=== PATIENT | female | born 1955 | race Two or more races ===

== ENCOUNTER 2024-09-03 16:15 | Emergency (ER) | payer OTHER ==
[~2024-09-03] VITALS: Ht 160 cm; Wt 64.4 kg
[2024-09-03] MEDS ORDERED: ACETAMINOPHEN500 M1 PO (20:29)
[2024-09-03] MEDS ORDERED: IBU800 MG PO (20:29)
== END 2024-09-03 21:23 | disposition home or self-care (01) ==
LOC: ER 16:16
DX: S52.592A Other fractures of lower end of left radius, initial encounter for closed fracture (principal); W18.39XA Other fall on same level, initial encounter; Y93.89 Activity, other specified; Y92.89 Other specified places as the place of occurrence of the external cause; Z88.8 Allergy status to other drugs, medicaments and biological substances